=== PATIENT | female | born 1980 | race Caucasian/White ===

== ENCOUNTER → 2021-12-05 | Outpatient (CLI) | payer BC ==
[2021-12-05 08:12] LABS: Urine Mucus FEW (None Seen)
[2021-12-05 08:58] LABS: BUN/Creatinine Ratio 12.1; Potassium 3.5 mmol/L (3.5-5.1)
[2021-12-05 08:59] LABS: Albumin 4.1 g/dL (3.4-5.0); Calcium 8.9 mg/dL (8.5-10.1); Total Protein 7.5 g/dL (6.4-8.2)
[2021-12-05 09:18] LABS: Hematocrit 40.4 % (36.0-46.0); Hemoglobin 13.4 g/dL (12.2-16.2); Mean Corpuscular Hemoglobin 31.5 pg (28.0-32.0); Mean Corpuscular Hgb Conc. 33.2 g/dL (32.0-36.0); Mean Corpuscular Volume 94.8 fL (80.0-100.0); Red Blood Cells 4.26 10^6/uL (4.0-5.20); Red Cell Distribution Width 13.1 % (11.8-14.3); White Blood Cell 5.8 10^3/uL (4.4-10.8)
[2021-12-05 13:10] LABS: Urine Specific Gravity 1.029 (1.001-1.035)
[2021-12-05 13:11] LABS: Urine Blood Negative /uL (Negative); Urine WBC 17 /hpf (0 - 5); Urine WBC Clumps NONE SEEN /hpf (None Seen)
[2021-12-05 13:12] LABS: Urine Bacteria FEW /hpf (None Seen)
[2021-12-06 06:06] LABS: RPR Non Reactive (Non Reactive)
[2021-12-07 09:53] LABS: Hepatitis B Surface Antibody Positive (Negative)
== END | disposition home or self-care (01) ==
LOC: LAB 07:03
PROVIDERS: ATTEND Internal Medicine
DX: Z00.01 Encounter for general adult medical examination with abnormal findings (principal); Z11.3 Encounter for screening for infections with a predominantly sexual mode of transmission; E78.6 Lipoprotein deficiency; R31.0 Gross hematuria
CPT/HCPCS: 36415; 80053; 80061; 81001; 82306; 83036; 85025; 86592; 86703; 86706; 86803; 87086; 87088; 87186; 87340